=== PATIENT | female | born 1980 | race Caucasian/White ===

== ENCOUNTER 2016-11-27 13:58 | Emergency (ER) | payer BC ==
[2016-11-27 14:09] VITALS: BP 134/74
--- NOTE | 2016-11-27 14:28 | ERNOTE ---
Medical Problem HPI - Narrative Date of Service: 11/27/16 - General Chief Complaint: General Assessment Time Seen by Provider: 11/27/16 14:18 Source: patient, RN notes reviewed Exam Limitations: no limitations - Immun/Allergies/Home Medications Immunizations: IMMUNIZATION HX Immunizations Up to Date Yes History of Influenza Vaccine No Hx Pneumococcal Vaccination No Allergies/Adverse Reactions: Allergies No Known Allergies Allergy (Verified 11/27/16 14:09) Home Medications: HOME MEDICATIONS HYDROcodone/ACETAMINOPHEN [[place] 5-325] 1 - 2 tab PO Q6H PRN #12 tab 11/27/16 [ Last Taken Unknown] buPROPion HCL [Wellbutrin] 100 mg PO BID 11/27/16 [Last Taken Unknown] - History of Present History Narrative: 36 y/o female presents to the ED with left sided rib pain that was first noticed when she woke up today. She was recently treated for bronchitis and still has a cough, but reports it is improving. The pain is constant but gets significantly worse with coughing, deep breathing and certain movements. She has not taken anything for pain. She denies any associated symptoms. Review of Systems - Review of Systems Constitutional: Present: recent illness. Absent: fever, chills, malaise EYE: Present: no symptoms reported ENT: Absent: nose congestion, sore throat Respiratory: Present: cough. Absent: shortness of breath, wheezing Cardiology: Absent: palpitations, syncope Gastrointestinal/Abdominal: Absent: nausea, abdominal pain Genitourinary: Absent: other - possible Musculoskeletal: Absent: back pain, neck pain, joint pain Skin: Absent: rash, lesions, lumps Neurological: Absent: headache, dizziness/light-headedness, weakness Endocrine: Present: no symptoms reported Hematologic/Lymphatic: Present: no symptoms reported Psych: Absent: anxiety - Patient's Past Medical History Patient History - Medical: Depression Patient History - Cardiac/Respiratory: No pertinent hx Patient History - Cancer: No Hx of Cancer Patient History - Surgical Procedures: Cholecystectomy, Patient History - Other: None LMP (females 10-50): 1 month - Social History Living Situations: home Abuse History: No History of abuse Psych History: Hx of Depression, Current tx/ever been on anti-depressants or anti-anxiety meds Smoking Status: Current every day smoker Have you smoked in the past 12 months: Yes Alcohol Use: rarely Drug Use: none - Immunizations Immunizations Up to Date: Yes Hx Pneumococcal Vaccination: No History of Influenza Vaccine: No Physical Exam - Physical Exam General Appearance: Present: wd/wn, alert, no apparent distress Head Exam: Present: normal inspection Neck: Present: normal inspection, nontender, supple, full range of motion Respiratory: Present: no respiratory distress, normal breath sounds, no accessory muscle use, lungs clear, chest tenderness - Left lower anterior ribs Cardiovascular/Chest: Present: regular rate, rhythm, no murmur, normal peripheral pulses Gastrointestinal/Abdominal: Present: nontender, nondistended, soft Back Exam: Present: normal inspection, no vertebral tenderness Extremity Exam: Present: normal inspection, normal range of motion, no edema Neurological Exam: Present: alert, oriented, normal mood/affect, no motor/ sensory deficits Skin Exam: Present: normal color, warm/dry ED Progress - Vital Signs Patient's Vital Signs:: I have reviewed the patient's vital signs. Vital Signs: Vital Signs 11/27/16 14:03 Temperature 36.4 C L Pulse Rate 116 H Respiratory 16 Rate Blood Pressure 134/74 O2 Sat by Pulse 99 Oximetry - Progress/Reassessment Chief Complaint: General Assessment Progress:: Unchanged Departure - Departure Clinical Impression: Rib pain on left side Disposition: Home self-care Condition: Good Instructions: Rib Contusion Additional Instructions: Continue ibuprofen Heat to sore area Referrals: Lety Cuadra FNP [Primary Care Provider] - Prescriptions: HYDROcodone/ACETAMINOPHEN [[place] 5-325] 1 - 2 tab PO Q6H PRN #12 tab PRN Reason: Pain
== END 2016-11-27 14:34 | disposition home or self-care (01) ==
LOC: ER 13:58
DX: R07.81 Pleurodynia (principal); F32.89 Other specified depressive episodes; F17.200 Nicotine dependence, unspecified, uncomplicated

== ENCOUNTER 2017-02-28 08:45 | Day surgery (SDC) | payer BC ==
[~2017-02-28 08:45] MED LIST: ceFAZolin SODIUM 2 GM in DEXTROSE 5 % IN WATER 50 ML IV PRN
--- NOTE | 2017-02-28 09:24 | ERNOTE ---
Integumentary HPI - General Presenting Symptoms: abscess - it is more the appearance of an inflamed sebaceous cyst however Time Seen by Provider: 02/28/17 08:52 Source: patient Exam Limitations: no limitations - Immun/Allergies/Home Medications Immunizations: IMMUNIZATION HX Immunizations Up to Date Yes History of Influenza Vaccine No Hx Pneumococcal Vaccination No Allergies/Adverse Reactions: Allergies Allergy/AdvReac Type Severity Reaction Status Date / Time No Known Allergies Allergy Verified 02/28/17 09:00 Home Medications: HOME MEDICATIONS HYDROcodone/ACETAMINOPHEN [[place] 5-325] 1 - 2 tab PO Q6H PRN #12 tab 11/27/16 [ Last Taken 02/27/17] buPROPion HCL [Wellbutrin] 100 mg PO BID 11/27/16 [Last Taken Unknown] - History of Present Illness Narrative: Patient has a known sebaceous cyst on the back of her neck. She states that the cyst is tender or several months but in the last few days it is gotten considerably more tender and enlarged and feels warm to the touch to her. She rates the pain as at least moderate in severity. Location: Reports: neck Quality: Reports: painful Severity: moderate Exposure: Reports: no cause identified Modifying Factors - (Improves): Reports: nothing Modifying Factors - (Worsens): Reports: nothing Associated Symptoms: Reports: denies symptoms Review of Systems - Review of Systems Constitutional: Present: See HPI EYE: Present: no symptoms reported ENT: Present: no symptoms reported Respiratory: Present: no symptoms reported Cardiology: Present: no symptoms reported Gastrointestinal/Abdominal: Present: no symptoms reported Genitourinary: Present: no symptoms reported Musculoskeletal: Present: no symptoms reported Skin: Present: See HPI Neurological: Present: no symptoms reported Endocrine: Present: no symptoms reported Hematologic/Lymphatic: Present: no symptoms reported Psych: Present: no symptoms reported - Patient's Past Medical History Patient History - Medical: Depression, Other - previous drainage of the same sebaceous cyst Patient History - Cardiac/Respiratory: No pertinent hx Patient History - Cancer: No Hx of Cancer Patient History - Surgical Procedures: Cholecystectomy, Patient History - Other: None LMP (Calendar): 02/14/17 - Family History Father Family History - Cardiac/Respiratory: Myocardial Infarction Family History - Cancer: Lung - Social History Living Situations: significant other Abuse History: No History of abuse Psych History: Hx of Depression, Current tx/ever been on anti-depressants or anti-anxiety meds Smoking Status: Current every day smoker Have you smoked in the past 12 months: Yes Do you dip or chew tobacco: No - Immunizations Immunizations Up to Date: Yes Hx Pneumococcal Vaccination: No History of Influenza Vaccine: No Physical Exam - Physical Exam General Appearance: Present: wd/wn, alert, moderate distress Head Exam: Present: normal inspection, no evidence of injury Eye Exam: Normal inspection: bilateral, PERRL: bilateral Ears, Nose, Throat: Present: normal ENT inspection, H, normal pharynx Neck: Present: tender posterior midline - at the area of the inflamed sebaceous cyst Respiratory: Present: no respiratory distress, normal breath sounds, no accessory muscle use, chest nontender, lungs clear Cardiovascular/Chest: Present: regular rate, rhythm, no murmur, normal peripheral pulses Gastrointestinal/Abdominal: Present: normal bowel sounds, nontender, nondistended, soft, no organomegaly Rectal Exam: Present: deferred Back Exam: Present: normal inspection, normal range of motion Extremity Exam: Present: normal inspection, non-tender, no edema, normal range of motion Neurological Exam: Present: alert, oriented, normal mood/affect Skin Exam: Present: normal color, warm/dry Lymphatic Exam: Present: no adenopathy ED Progress - Vital Signs Patient's Vital Signs:: I have reviewed the patient's vital signs. Vital Signs: Vital Signs 02/28/17 08:51 Temperature 36.7 C Pulse Rate 98 Respiratory 18 Rate Blood Pressure 159/90 O2 Sat by Pulse 96 Oximetry - Progress/Reassessment Chief Complaint: Abscess Plan - Plan Plan: Dr. Judge has been consulted and he will come in and determine whether immediate surgery of this inflamed cyst needs to be undertaken today or whether he can safely do it on Thursday. Dr. Judge will take the patient to the operating room this morning. Departure Clinical Impression: Abscess - Departure Disposition: [facility] Condition: Good
[2017-02-28] MEDS ORDERED: ceFAZolin SODIUM 1 GM VIAL IV PRN (10:52)
[2017-02-28] MEDS ORDERED: RINGER'S SOLUTION,LACTATED 1,000 ML IV PRN ×2 (10:52→16:14)
[2017-02-28] MEDS ORDERED: RINGER'S SOLUTION,LACTATED 1,000 ML IV ONE ×2 (11:00)
--- NOTE | 2017-02-28 11:11 | HP ---
Chief Complaint - Chief Complaint Date of Service: 02/28/17 Time of Service: 10:57 Chief Complaint: Painful enlarging cyst on back of neck History of Present Illness: She had I&D of epidermoid cyst on the posterior neck in September of 2015. It came back and gradually enlarged. This week it became very tender, has not drained. - Patient's Past Medical History Patient History - Medical: Depression, Other - previous drainage of the same sebaceous cyst Patient History - Cardiac/Respiratory: No pertinent hx Patient History - Cancer: No Hx of Cancer Patient History - Surgical Procedures: Cholecystectomy, Patient History - Other: None LMP (Calendar): 02/14/17 - Family History Family History:: no untoward family reactions to anesthesia, no familial bleeding tendencies - Family History Father Family History - Cardiac/Respiratory: Myocardial Infarction Family History - Cancer: Lung - Social History Living Situations: significant other Abuse History: No History of abuse Psych History: Hx of Depression, Current tx/ever been on anti-depressants or anti-anxiety meds Smoking Status: Current every day smoker Have you smoked in the past 12 months: Yes Do you dip or chew tobacco: No - Immunizations Immunizations Up to Date: Yes Hx Pneumococcal Vaccination: No History of Influenza Vaccine: No Review Of Systems (GEN) - Review of Systems Generalized/Overall Review: Present: Fatigue - Sleeps poorly due to work schedule (12hr nights) EENTM: Present: Other - Pain and tenderness over cyst on posterior neck. Also has cyst behind left ear from piercing Respiratory: Present: Cough - chronic smoker's cough---no worse and non- productive Cardiac: Absent: Chest Pain, Edema, Palpitations Abdominal: Present: No Symptoms Reported, Other - irregular bowel habit since cholecystectomy, more on soft side. Absent: Abdominal Pain Genitourinary: Present: No Symptoms Reported. Absent: Burning, Frequency Musculoskeletal: Present: No Symptoms Reported Neurological: Present: No Symptoms Reported Skin: Present: Other - cysts as above. Has seen Dermatology for check on other lesions Endocrine: Present: No Symptoms Reported Immunizations: IMMUNIZATION HX Immunizations Up to Date Yes History of Influenza Vaccine No Hx Pneumococcal Vaccination No Allergies/Adverse Reactions: Allergies Allergy/AdvReac Type Severity Reaction Status Date / Time No Known Allergies Allergy Verified 02/28/17 09:00 Home Medications: HOME MEDICATIONS HYDROcodone/ACETAMINOPHEN [[place] 5-325] 1 - 2 tab PO Q6H PRN #12 tab 11/27/16 [ Last Taken 02/27/17] buPROPion HCL [Wellbutrin] 100 mg PO BID 11/27/16 [Last Taken Unknown] Exam - Exam Vital Signs: Vital Signs - Last Taken Temp 36.7 C 02/28/17 08:51 Pulse 86 02/28/17 10:42 Resp 12 02/28/17 10:42 BP 136/80 02/28/17 10:42 Pulse Ox 97 02/28/17 10:42 Constitutional: Present: Alert, Oriented x3, Cooperative, Well nourished, No distress ENT Exam: Present: other - ENT normal except 3.5 cm tender slightly red epidermal inclusion cyst posterior neck. 1 cm inclusion cyst behind left ear from piercing--not inflammed Eye Exam: bilateral eye: normal inspection Neck: Present: full range of motion Back Exam: Present: normal inspection Breasts: Present: Exam deferred Respiratory: Present: lungs clear, no respiratory distress Cardiovascular/Chest: Present: normal peripheral pulses, regular rate, rhythm, no murmur Abdomen: Present: soft, nontender /Rectal: Present: Exam deferred Extremity: Present: normal range of motion, normal inspection, no calf tenderness, normal capillary refill Skin Exam: Present: normal color, warm/dry Neurologic: Present: 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 It will require MAC/local for excision which should be done in the OR due to large size. Explained excision with closure. Risk of infection and need to wait for suitable NPO status. Questions answered to her apparent satisfaction, and informed consent for excision obtained. Problem: Acute
[2017-02-28] MEDS ORDERED: BUPIVACAINE HCL/EPINEPHRINE 50 ML VIAL IJ ONE (15:02)
[2017-02-28] MEDS ORDERED: MUPIROCIN 22 APPL TUBE TP ONE (15:10)
[2017-02-28] MEDS ORDERED: oxyCODONE HCL/ACETAMINOPHEN 1 TAB TABLET PO ONE ×2 (16:03→16:43)
[2017-02-28] MEDS ORDERED: oxyCODONE HCL/ACETAMINOPHEN 1 TAB TABLET ONE (16:41)
[2017-02-28 17:20] VITALS: BP 105/69
--- NOTE | 2017-02-28 17:26 | OR ---
Operative Report - Dictated Report Narrative: OPERATIVE REPORT DATE OF OPERATION: 02/28/2017 PREOPERATIVE DIAGNOSIS: Epidermoid inclusion cyst of posterior neck POSTOPERATIVE DIAGNOSIS: Inflamed epidermoid inclusion cyst of the posterior neck OPERATION: Excision of inflamed 2.5 cm epidermoid inclusion cyst of the posterior neck SURGEON: Evangelina Judge MD ANESTHESIA: Gen. endotracheal (prone) Neftali Arias CRNA INDICATIONS FOR PROCEDURE: The patient is a 36-year-old female who presents with a gradually enlarging and now tender epidermal inclusion cyst of the posterior neck. It has been previously incised and drained a year ago but recurred. FINDINGS: Large inflamed epidermal inclusion cyst of the posterior neck completely excised to gross inspection NARRATIVE OF PROCEDURE: The patient was identified preoperatively, the surgical site was marked, and prior to the administration of anesthetic a multidisciplinary timeout was observed. The patient was initially placed supine , SCDs were applied, and 2 g of intravenous Ancef administered. General endotracheal anesthetic was administered. The patient was then transferred to the prone position with appropriate padding and monitoring. The area around the cyst was clipped and prepped with Betadine solution. The area was isolated with sterile drapes in the remainder the patient covered with a sterile disposable sheet. The area around the cyst was infiltrated with 0.25% Marcaine with epinephrine. An elliptical skin incision was made to include the central pore and previous I&D site. The sac was then dissected free from surrounding subcutaneous tissue, the specimen removed and submitted to pathology. The base of the wound was inspected for hemostasis which was complete. The wound was then irrigated with Betadine and saline. After receiving a correct sponge needle and instrument count attention was turned to closing the wound. Subcutaneous tissue was approximated with 2 interrupted sutures of 2-0 chromic. The skin was approximated with interrupted vertical mattress sutures of 3-0 nylon. 1/4 inch iodoform ariana were left in the subcutaneous tissue and brought out through the skin. The operative site was washed and dried. A dressing of mupirocin ointment and Mepilex border/Medipore tape was applied. The operative procedure was terminated at this point. The patient tolerated the anesthetic and procedure well without complication. She was returned to the supine position without incident and then transferred to the recovery room awake, extubated, and in stable condition. The patient remained stable throughout a period of postoperative observation. She had some incisional discomfort which was controlled with po Percocet. She was able to tolerate regular diet and was up without assistance. Her dressing remained dry. I shared the operative findings with her. She was discharged home with instructions not to engage in hazardous activity today but she may return to normal activity tomorrow and advance diet as tolerated. She is to keep the dressing dry. She is to continue those medications as listed in the history and physical exam. She was given a prescription for Keflex 250 mg #21 1 po 3 times a day and Percocet 5/325 mg #30 1-2 po Q4-6hrs prn pain. She has phone numbers to call if needed for uncontrolled discomfort or problems with the incision. She will be seen tomorrow in the office for initial dressing change. Reviewed and electronically signed
== END 2017-02-28 10:42 | disposition home or self-care (01) ==
LOC: ER 08:45 → AMB 10:41
PROVIDERS: ATTEND Surgery
PROC: 0JQ40ZZ Repair Right Neck Subcutaneous Tissue and Fascia, Open Approach (ICD-10-PCS; 2017-02-28)
PROC: 0JB50ZZ Excision of Left Neck Subcutaneous Tissue and Fascia, Open Approach (ICD-10-PCS; 2017-02-28)
PROC: 0JB40ZZ Excision of Right Neck Subcutaneous Tissue and Fascia, Open Approach (ICD-10-PCS; 2017-02-28)
PROC: 0JQ50ZZ Repair Left Neck Subcutaneous Tissue and Fascia, Open Approach (ICD-10-PCS; principal; 2017-02-28 12:58)
DX: L72.0 Epidermal cyst (principal); F17.200 Nicotine dependence, unspecified, uncomplicated; Z68.23 Body mass index [BMI] 23.0-23.9, adult

== ENCOUNTER 2018-11-25 15:53 | Inpatient (IN) ==
[2018-11-25] MEDS ORDERED: OXYTOCIN 20 UNITS in RINGER'S SOLUTION,LACTATED 1,000 ML IV ONE ×2 (16:03→19:06)
[2018-11-25] MEDS ORDERED: ceFAZolin SODIUM/DEXTROSE,ISO 2 GM/50 ML BAG IV ONE (16:03)
[2018-11-25] MEDS ORDERED: RINGER'S SOLUTION,LACTATED 1,000 ML IV PRN (16:03)
--- NOTE | 2018-11-25 16:16 | HP ---
Chief Complaint - Chief Complaint Date of Service: 11/25/18 Time of Service: 16:05 Chief Complaint: headache, elevated BP History of Present Illness: 38 year old @ 36w 0d Proceed with delivery due to pre-eclampsia with severe features. Magnesium for seizure prophylaxis after delivery Pre-eclampsia labs drawn today Type and screen ordered UDS ordered IUGR: normal cord Dopplers one week ago AMA Smoker Proceed with repeat delivery and salpingectomies. All risks, benefits, and alternatives of the procedure were explained to the patient and the patient consented to the procedure. Medical History (Updated 11/25/18 @ 15:39 by Terese Fisher MD) Anxiety Depression GERD (gastroesophageal reflux disease) Kidney stones Lives with domestic partner Migraine Rarely consumes alcohol Tobacco use Onset Date: ~1995 1 ppd Surgical History: Surgical History (Updated 08/25/18 @ 16:13 by Terese Fisher MD) History of section History of cholecystectomy History of excision of epidermal inclusion cyst History of esophagogastroduodenoscopy (EGD) Onset Date: ~10/21/17 [place]-mild reflux changes. Mild benign reactive gastropathy/chemical gastrit is. Family History: Family History (Updated 06/02/18 @ 13:23 by Lewis Carlson RN) Mother Alive and well Father Cancer Hypertension Heart disease COPD (chronic obstructive pulmonary disease) Social History: (Last Updated 11/18/18 @ 15:53 by Terese Fisher MD) Social History: adopted: No Marital status: Single household members: significant other, children number of children: 2 current occupational status: employed current occupation: [employer] Highest education level completed: some college, no degree Service: No Tobacco: Smoking Status: Current every day smoker Alcohol: alcohol intake: former details: stopped with Substance Use: substance use type: does not use Dietary Habits: caffeine: Yes caffeine comment: 10 cups daily Type: carbonated beverages, coffee Pets: pets and animals: cat(s) Immunizations: IMMUNIZATION HX Immunizations Up to Date Yes History of Influenza Vaccine No Hx Pneumococcal Vaccination No Allergies/Adverse Reactions: Allergies Allergy/AdvReac Type Severity Reaction Status Date / Time No Known Allergies Allergy Verified 11/25/18 15:18 Home Medications: HOME MEDICATIONS Acetaminophen 2 tab PO Q6H PRN 10/06/17 [Last Taken 11/01/18 16:30] vit 112-iron 3.33 mg-folate 0.33 [id number] chew tablet 3 tab PO DAILY 06/02/18 [Last Taken 10/30/18] ferrous sulfate 325 mg (65 mg iron) tablet 325 mg PO DAILY 09/23/18 [Last Taken 10/31/18] miscellaneous medical supply misc See Dose Instructions .ROUTE .MEDSUPPLY #1 ea 10/25/18 [Last Taken Unknown] cyclobenzaprine 10 mg tablet 10 mg PO Q8H 30 Days #90 tab 11/22/18 [Last Taken Unknown]
--- NOTE | 2018-11-25 16:33 | HP ---
Chief Complaint - Chief Complaint Date of Service: 11/25/18 Time of Service: 16:29 Chief Complaint: Headache, elevated BP History of Present Illness: The patient is a 38 year old at 36w 0d who presented to the office for a routine obstetrical visit. She reported a headache. She denies vb, lof or ctx. Fetus is active. Medical History (Updated 11/25/18 @ 16:15 by Terese Fisher MD) Anxiety Depression GERD (gastroesophageal reflux disease) Kidney stones Lives with domestic partner Migraine Rarely consumes alcohol Tobacco use Onset Date: ~1995 03 ppd Surgical History: Surgical History (Updated 11/25/18 @ 16:15 by Terese Fisher MD) History of section History of cholecystectomy History of excision of epidermal inclusion cyst History of esophagogastroduodenoscopy (EGD) Onset Date: ~10/21/17 [place]-mild reflux changes. Mild benign reactive gastropathy/chemical gastritis. Family History: Family History (Updated 06/02/18 @ 13:23 by Lewis Carlson RN) Mother Alive and well Father Cancer Hypertension Heart disease COPD (chronic obstructive pulmonary disease) Social History: (Last Reviewed 11/25/18 @ 16:27 by Deya Scherer RN) Social History: adopted: No Marital status: Single household members: significant other, children number of children: 2 current occupational status: employed current occupation: [employer] Highest education level completed: some college, no degree Service: No Tobacco: Smoking Status: Current every day smoker Alcohol: alcohol intake: former details: stopped with Substance Use: substance use type: does not use Dietary Habits: caffeine: Yes caffeine comment: 10 cups daily Type: carbonated beverages, coffee Pets: pets and animals: cat(s) Review Of Systems (GEN) - Review of Systems Generalized/Overall Review: Present: No Symptoms Reported Misc: All systems neg except as marked Immunizations: IMMUNIZATION HX Immunizations Up to Date Yes History of Influenza Vaccine No Hx Pneumococcal Vaccination No Allergies/Adverse Reactions: Allergies Allergy/AdvReac Type Severity Reaction Status Date / Time No Known Allergies Allergy Verified 11/25/18 16:27 Home Medications: HOME MEDICATIONS Acetaminophen 2 tab PO Q6H PRN 10/06/17 [Last Taken 11/01/18 16:30] vit 112-iron 3.33 mg-folate 0.33 [id number] chew tablet 3 tab PO DAILY 06/02/18 [Last Taken 10/30/18] ferrous sulfate 325 mg (65 mg iron) tablet 325 mg PO DAILY 09/23/18 [Last Taken 10/31/18] miscellaneous medical supply misc See Dose Instructions .ROUTE .MEDSUPPLY #1 ea 10/25/18 [Last Taken Unknown] cyclobenzaprine 10 mg tablet 10 mg PO Q8H 30 Days #90 tab 11/22/18 [Last Taken Unknown] Exam - Exam Vital Signs: 36.3 Celcius 161/87 99 98% 16 Constitutional: Present: Alert, Oriented x3, Cooperative, No distress Respiratory: Present: lungs clear, normal breath sounds Cardiovascular/Chest: Present: regular rate, rhythm, no murmur Abdomen: Present: soft, nontender, nondistended Extremity: Present: non-tender, no calf tenderness Skin Exam: Present: normal color, warm/dry, no cyanosis Appearance: Present: appropriate appearance Eye contact: Present: cooperative Thoughts: Present: normal thought pattern Assessment/Plan - Narrative Narrative: 38 year old @ 36w 0d Proceed with delivery due to pre-eclampsia with severe features. Magnesium for seizure prophylaxis after delivery Pre-eclampsia labs drawn today Type and screen ordered UDS ordered IUGR: normal cord Dopplers one week ago AMA Smoker Proceed with repeat delivery. All risks, benefits, and alternatives of the procedure were explained to the patient and the patient consented to the procedure.
--- NOTE | 2018-11-25 16:41 | ANES ---
Anesthesia Pre Procedure Eval Vitals/Labs: Last Vital Signs Temp 36.3 C 11/25/18 16:33 Pulse 108 H 11/25/18 16:33 Resp 16 11/25/18 16:33 BP 161/87 H 11/25/18 16:33 Pulse Ox 99 11/25/18 16:33 HOME MEDICATIONS Acetaminophen 2 tab PO Q6H PRN 10/06/17 [Last Taken 11/01/18 16:30] vit 112-iron 3.33 mg-folate 0.33 [id number] chew tablet 3 tab PO DAILY 06/02/18 [Last Taken 10/30/18] ferrous sulfate 325 mg (65 mg iron) tablet 325 mg PO DAILY 09/23/18 [Last Taken 10/31/18] miscellaneous medical supply misc See Dose Instructions .ROUTE .MEDSUPPLY #1 ea 10/25/18 [Last Taken Unknown] cyclobenzaprine 10 mg tablet 10 mg PO Q8H 30 Days #90 tab 11/22/18 [Last Taken Unknown] Allergies/Adverse Reactions: Allergies Allergy/AdvReac Type Severity Reaction Status Date / Time No Known Allergies Allergy Verified 11/25/18 16:27 - Planned Procedure Planned Procedure: Repeat Section Medication List Reviewed:: Yes Allergies Verified: Yes Medical History (Updated 11/25/18 @ 16:15 by Terese Fisher MD) Anxiety Depression GERD (gastroesophageal reflux disease) Kidney stones Lives with domestic partner Migraine Rarely consumes alcohol Tobacco use Onset Date: ~1995 03 ppd Surgical History (Updated 11/25/18 @ 16:15 by Terese Fisher MD) History of section History of cholecystectomy History of excision of epidermal inclusion cyst History of esophagogastroduodenoscopy (EGD) Onset Date: ~10/21/17 Bagan-mild reflux changes. Mild benign reactive gastropathy/chemical gastritis. Family History (Updated 06/02/18 @ 13:23 by Lewis Carlson RN) Mother Alive and well Father Cancer Hypertension Heart disease COPD (chronic obstructive pulmonary disease) - Family Anesthesia History Family History:: no untoward family reactions to anesthesia, no familial bleeding tendencies, no family history of clotting disorders, no family history of premature - Airway/Neck/Teeth Within Normal Limits:: Yes Teeth Condition: intact Denture Type: Full upper, Full lower Mallampatti Score: 2 Thyromental (T-M) distance: > 6 cm Mandibulo Hyoid distance: > 3 cm - Respiratory Respiratory Physical: lungs clear Smoking Status: Current every day smoker Discussed smoking cessation including day of surgery: Yes Sleep Apnea currently treated: No Sleep Apnea by current assessment: No Discussed Risks/Treatment of WENDY: No - Cardiovascular Tolerate Activity: Good Heart Sounds: S1 & S2, Regular - Anesthesia Assessment and Plan ASA Class: PS, II Anesthesia Type Plan: Block - Bilateral ultrasound guided TAP blocks for postop analgesia, Spinal
[2018-11-25] MEDS ORDERED: CALCIUM GLUCONATE 4.65 MEQ/10 ML VIAL IV PRN (16:49)
[2018-11-25] MEDS ORDERED: MAGNESIUM SULFATE IN WATER 50 ML IV ONE (16:49)
[2018-11-25] MEDS ORDERED: DIAZEPAM 5 MG/ML SYRG IV PRN (16:49)
[2018-11-25 17:18] LABS: Random Urine Total Protein 177.7 mg/dL (0-12)
[2018-11-25 17:25] LABS: Cocaine Ur Negative (NEGATIVE); Urine Barbiturate Negative (NEGATIVE); Urine Benzodiazepines Negative (NEGATIVE); Urine Opiates Negative (NEGATIVE); Urine PCP Negative (NEGATIVE); Urine THC Negative (NEGATIVE)
--- NOTE | 2018-11-25 18:24 | ANES ---
Post Anesthesia Discharge - Transfer of Care Transfer of Care handoff given to nurse: Yes - Discharge from PACU Discharge from PACU when meets criteria: Yes - Discharge to ASU Discharge to ASU-no complications/pt stable: Yes
--- NOTE | 2018-11-25 18:38 | ANES ---
Post Anesthesia Assessment - Vital Signs Vitals: Last Vital Signs Temp 36.3 C 11/25/18 16:33 Pulse 108 H 11/25/18 16:33 Resp 16 11/25/18 16:33 BP 161/87 H 11/25/18 16:33 Pulse Ox 99 11/25/18 16:33 Airway Patency: Normal - Mental Status Level Of Consciousness: Awake - Pain Level Pain Score: 3 - N/V Assessment Nausea/Vomiting Presence: None Dehydration:: No
--- NOTE | 2018-11-25 18:38 | ANES ---
Anesthesia Procedure Note Procedure Note: ANESTHESIA PROCEDURE NOTE Date of Procedure: 11/25/2018. Time of procedure: 1824. Performed by: Crispin Courtney CRNA Medical Accounting Clerk: None. Preprocedure diagnosis: Repeat . Post procedure diagnosis: Same. Procedure: Bilateral ultrasound-guided transversus abdominis plane block for postop analgesia. Indications: The patient is a 38-year-old female post section. Findings: See below. Details of the procedure: ChloraPrep was used on the patient's abdomen and the procedure was performed under sterile technique. The right abdominal fascial layer between the internal oblique muscle and the transversus abdominis muscles was identified under ultrasound guidance. A 21-gauge 4 inch block needle was inserted under ultrasound guidance to the target fascial plane. 15 mL's of 0.5% bupivacaine plus epinephrine 1:200,000 was injected after negative aspiration for blood. The needle was removed intact and the procedure was then repeated at the left side. No complications were noted. The images were retained in the hospital medical database. EBL: Minimal. Fluids: N/A. Specimen: N/A. Post procedure condition: The patient tolerated the procedure well. No complications were noted. Thank you for this consultation. Crispin Courtney CRNA
[2018-11-25] MEDS: RINGER'S SOLUTION,LACTATED 1,000 ML IV PRN (18:40)
[2018-11-25] MEDS: MAGNESIUM SULFATE IN WATER 1,000 ML IV SCH (19:00)
[2018-11-25] MEDS ORDERED: oxyCODONE HCL/ACETAMINOPHEN 1 TAB TABLET PO PRN (19:06)
[2018-11-25] MEDS ORDERED: SENNOSIDES 8.6 MG TABLET PO PRN (19:06)
[2018-11-25] MEDS ORDERED: diphenhydrAMINE HCL 25 MG CAPSULE PO PRN (19:06)
[2018-11-25] MEDS ORDERED: BISACODYL 10 MG SUPP.RECT RC PRN (19:06)
[2018-11-25] MEDS ORDERED: ONDANSETRON HCL/PF 2 MG/ML VIAL IV PRN (19:06)
[2018-11-25] MEDS ORDERED: SIMETHICONE 80 MG TAB.CHEW PO PRN (19:06)
--- NOTE | 2018-11-25 19:06 | OR ---
Operative Report - Dictated Report Narrative: Date of delivery: 11/25/2018 Time of delivery: 172 Gender: male weight: 2202 grams APGARS: 9/9 Preoperative diagnosis: IUP @ 36w 0d, pre-eclampsia with severe features, AMA, smoker, IUGR Postoperative diagnosis: same Procedure: Repeat delivery Surgeon: Dr. Fisher Anesthesia: spinal Description of the procedure: The patient was taken to the operating room where spinal anesthesia was induced. She was then prepped and draped in the supine position in the standard surgical fashion. A Pfannestiel skin incision was made. The incision was carried through the subcutaneous tissue. The fascia was incised in the midline. After incising the fascia the omentum was noted consistent with an incisional hernia. The fascia was grasped with Ever clamps and dissected from the underlying rectus muscle. The rectus muscles were in the midline. The peritoneum was entered bluntly. The bladder was noted to be adherent to the lower uterine segment. A bladder flap was created. A large Zain retractor was placed. The uterus was incised in the lower uterine segment. The uterine incision was extended bluntly. The membranes were ruptured and clear amniotic fluid was noted. The head was delivered followed by the rest of the . The cord was clamped and cut and the infant was handed off to the attending pediatric staff. Cord blood was collected. The placenta was removed by placing a hand in the uterus as it was shearing and not able to be removed by expression. Trailing membranes were noted and these were removed. The uterus was cleared of all clots and debris. The uterine incision was closed with a layer of 0-vicryl. A second layer of 0-vicryl was used to obtain excellent hemostasis. Additional figure of eight sutures were placed in the midline in the superior aspect of the incision for additional hemostasis. Hemostasis was obtained with electrocautery. All surfaces were inspected and appeared hemostatic. The fascia was closed with 1-0 vicryl. The subcutaneous tissue was irrigated and made hemostatic. The skin was closed with 3-0 monocryl on a Jairo needle. [place] centeno was placed over the incision. A pressure dressing was applied to the incision. All sponge, lap, and needle counts were correct. The patient tolerated the procedure well. She was transferred to the recovery room in stable condition. EBL: 900 mL Complications: none Specimen: placenta
[2018-11-25] MEDS ORDERED: LABETALOL HCL 5 MG/ML VIAL IV ONE (19:30)
[2018-11-25] MEDS: oxyCODONE HCL/ACETAMINOPHEN 1 TAB TABLET PO PRN ×2 (19:40→23:23)
[2018-11-25] MEDS ORDERED: NICOTINE 7 MG PATC TD ONE (22:12)
[2018-11-25] MEDS: NICOTINE 14 MG PATC TD SCH (22:18)
[2018-11-25] MEDS: DOCUSATE SODIUM 100 MG CAPSULE PO SCH (23:23)
[2018-11-26] MEDS: oxyCODONE HCL/ACETAMINOPHEN 1 TAB TABLET PO PRN ×7 (02:47→23:57)
[2018-11-26] MEDS: RINGER'S SOLUTION,LACTATED 1,000 ML IV PRN ×2 (04:32→13:30)
[2018-11-26] MEDS: DOCUSATE SODIUM 100 MG CAPSULE PO SCH ×2 (10:23→20:33)
[2018-11-26] MEDS: MAGNESIUM SULFATE IN WATER 1,000 ML IV SCH (13:27)
[2018-11-26 14:32] LABS: Mean Cell Volume 96.6 fl (78-100); Mean Corpuscular Hemoglobin 33.3 pg (27-31); Mean Corpuscular Hgb Conc 34.5 g/dl (32-36); Mean Platelet Volume 13.3 fl (8-12.5); Platelet Count 196 K/mm3 (150-450); Red Blood Count 2.37 M/mm3 (4.2-5.4); Red Cell Distribution Width 13.5 % (11.5-14.0)
[2018-11-26 14:40] LABS: Albumin * 1.4 gm/dl (3.4-5.0); BUN/Creatinine Ratio 5.7 (9.0-21.6); Bilirubin, Total 0.1 mg/dL (0.0-1.1); Ca. Corrected For Albumin 8.3 mg/dL (8.4-10.2); Calcium * 6.5 mg/dL (7.9-10.9); Total Protein 4.5 gm/dL (6.2-8.2)
[2018-11-26 14:44] LABS: Hematocrit 22.9 % (37.0-47.0); Hemoglobin 7.9 gm/dL (12.5-16.0)
[2018-11-26 14:45] LABS: Total Cells Counted 100
[2018-11-26 14:56] LABS: Band 7 % (0-2.0); Lymphocyte 18 % (20-51); Monocyte 3 % (0-9); Neutrophil 72 % (42-75); Neutrophil # 14.4 K/mm3 (1.3-6.0); Platelet Estimate Normal (NORMAL); RBC Morphology Normal (NORMAL)
--- NOTE | 2018-11-26 20:16 | PN ---
Subjective - Date and Time Seen Date: 11/26/18 Time: 20:14 Subjective Narrative: Patient without complaints Objective Objective Narrative: See vital signs - Review of Systems Generalized/Overall Review: Reports: No Symptoms Reported Misc: All systems neg except as marked - Vitals Vitals: Last Vital Signs Temp 36.3 C 11/26/18 19:55 Pulse 95 11/26/18 19:55 Resp 16 11/26/18 19:55 BP 152/70 H 11/26/18 19:55 Pulse Ox 96 11/26/18 19:55 - Abnormal Lab Findings Abnormal Lab Findings: Abnormal Lab Results 11/26/18 11/26/18 11/26/18 Range/Units 14:15 14:15 14:21 WBC 20.0 H D (4.0-10.5) K/mm3 RBC 2.37 L (4.2-5.4) M/mm3 Hgb 7.9 L* D (12.5-16.0) gm/dL Hct 22.9 L* D (37.0-47.0) % MCH 33.3 H (27-31) pg MPV 13.3 H (8-12.5) fl Band Neuts % (Manual) 7 H (0-2.0) % Lymphocytes % (Manual) 18 L (20-51) % Neutrophils # (Manual) 14.4 H (1.3-6.0) K/mm3 Lymphocytes # (Manual) 3.6 H (1.5-3.5) k/mm3 Carbon Dioxide 23.0 L (24-32.6) mmol/L BUN/Creatinine Ratio 5.7 L (9.0-21.6) Calcium 6.5 L (7.9-10.9) mg/dL Calcium Adj for Albumin 8.3 L (8.4-10.2) mg/dL Magnesium 7.3 H (1.2-2.8) mg/dL ALT 7 L (19-67) U/L Total Protein 4.5 L (6.2-8.2) gm/dL Albumin 1.4 L (3.4-5.0) gm/dl - Exam Constitutional: Present: Alert, Oriented x3, Cooperative, No distress Respiratory: Present: lungs clear, normal breath sounds Cardiovascular/Chest: Present: regular rate, rhythm, no murmur Abdomen: Present: soft, nontender, nondistended Extremity: Present: non-tender, no calf tenderness Skin Exam: Present: normal color, warm/dry, no cyanosis Appearance: Present: appropriate appearance Eye contact: Present: cooperative Thoughts: Present: normal thought pattern Cauti Physician Documentation - Urinary Catheter Management Urethral (Smith) Urethral Indwelling: No Date of Insertion: 11/26/18 Time of Insertion: 17:05 Date of Removal: 11/26/18 Time of Removal: 19:00 Assessment/Plan Plan Narrative: POD 1 s/p repeat delivery Doing well Magnesium discontinued secondary to patient having symptoms of toxicity Hemoglobin shows anemia as expected given blood loss as well as preoperative hemoglobin. Repeat CBC in the AM Start procardia for severe range BPs Anticipate discharge POD 3
[2018-11-26] MEDS: NICOTINE 14 MG PATC TD SCH (21:16)
[2018-11-27] MEDS: oxyCODONE HCL/ACETAMINOPHEN 1 TAB TABLET PO PRN ×5 (03:08→21:08)
[2018-11-27 07:08] LABS: Hematocrit 24.1 % (37.0-47.0); Hemoglobin 8.3 gm/dL (12.5-16.0); Mean Cell Volume 97.6 fl (78-100); Mean Corpuscular Hemoglobin 33.6 pg (27-31); Mean Corpuscular Hgb Conc 34.4 g/dl (32-36); Mean Platelet Volume 12.2 fl (8-12.5); Neutrophil # 12.3 K/mm3 (1.3-6.0); Neutrophil % 69.9 % (42-75.0); Platelet Count 211 K/mm3 (150-450); Red Blood Count 2.47 M/mm3 (4.2-5.4); Red Cell Distribution Width 13.6 % (11.5-14.0); White Blood Count 17.7 K/mm3 (4.0-10.5)
[2018-11-27] MEDS: DOCUSATE SODIUM 100 MG CAPSULE PO SCH ×3 (07:37→21:08)
--- NOTE | 2018-11-27 09:40 | PN ---
Subjective - Date and Time Seen Date: 11/27/18 Time: 09:39 Subjective Narrative: Patient without complaints Objective Objective Narrative: See vital signs - Review of Systems Generalized/Overall Review: Reports: No Symptoms Reported Misc: All systems neg except as marked - Vitals Vitals: Last Vital Signs Temp 36.7 C 11/27/18 07:15 Pulse 101 H 11/27/18 07:15 Resp 20 11/27/18 07:15 BP 152/72 H 11/27/18 07:15 Pulse Ox 97 11/27/18 07:15 - Abnormal Lab Findings Abnormal Lab Findings: Abnormal Lab Results 11/26/18 11/26/18 11/26/18 Range/Units 14:15 14:15 14:21 WBC 20.0 H D (4.0-10.5) K/mm3 RBC 2.37 L (4.2-5.4) M/mm3 Hgb 7.9 L* D (12.5-16.0) gm/dL Hct 22.9 L* D (37.0-47.0) % MCH 33.3 H (27-31) pg MPV 13.3 H (8-12.5) fl Immature Gran % (Auto) (0.001-0.429) % Immature Gran # (Auto) (0.000-0.0310) K/mm3 Band Neuts % (Manual) 7 H (0-2.0) % Lymphocytes % (20-51) % Lymphocytes % (Manual) 18 L (20-51) % Neutrophils # (1.3-6.0) K/mm3 Neutrophils # (Manual) 14.4 H (1.3-6.0) K/mm3 Lymphocytes # (Manual) 3.6 H (1.5-3.5) k/mm3 Monocytes # (0.0-1.0) k/mm3 Carbon Dioxide 23.0 L (24-32.6) mmol/L BUN/Creatinine Ratio 5.7 L (9.0-21.6) Calcium 6.5 L (7.9-10.9) mg/dL Calcium Adj for Albumin 8.3 L (8.4-10.2) mg/dL Magnesium 7.3 H (1.2-2.8) mg/dL ALT 7 L (19-67) U/L Total Protein 4.5 L (6.2-8.2) gm/dL Albumin 1.4 L (3.4-5.0) gm/dl 11/27/18 Range/Units 06:00 WBC 17.7 H (4.0-10.5) K/mm3 RBC 2.47 L (4.2-5.4) M/mm3 Hgb 8.3 L (12.5-16.0) gm/dL Hct 24.1 L (37.0-47.0) % MCH 33.6 H (27-31) pg MPV (8-12.5) fl Immature Gran % (Auto) 1.40 H (0.001-0.429) % Immature Gran # (Auto) 0.25 H (0.000-0.0310) K/mm3 Band Neuts % (Manual) (0-2.0) % Lymphocytes % 19.2 L (20-51) % Lymphocytes % (Manual) (20-51) % Neutrophils # 12.3 H (1.3-6.0) K/mm3 Neutrophils # (Manual) (1.3-6.0) K/mm3 Lymphocytes # (Manual) (1.5-3.5) k/mm3 Monocytes # 1.5 H (0.0-1.0) k/mm3 Carbon Dioxide (24-32.6) mmol/L BUN/Creatinine Ratio (9.0-21.6) Calcium (7.9-10.9) mg/dL Calcium Adj for Albumin (8.4-10.2) mg/dL Magnesium (1.2-2.8) mg/dL ALT (19-67) U/L Total Protein (6.2-8.2) gm/dL Albumin (3.4-5.0) gm/dl - Exam Constitutional: Present: Alert, Oriented x3, Cooperative, No distress Abdomen: Present: soft, nontender, nondistended - dressing c/d/i Extremity: Present: non-tender, no calf tenderness Skin Exam: Present: normal color, warm/dry, no cyanosis Appearance: Present: appropriate appearance Eye contact: Present: cooperative Thoughts: Present: normal thought pattern Cauti Physician Documentation - Urinary Catheter Management Urethral (Smith) Urethral Indwelling: No Date of Insertion: 11/26/18 Time of Insertion: 17:05 Date of Removal: 11/26/18 Time of Removal: 19:00 Assessment/Plan Plan Narrative: POD 2 s/p repeat delivery Doing well Discharge POD 3
[2018-11-27] MEDS: NIFEdipine 30 MG TAB.SR.24H PO SCH ×3 (14:03→20:22)
[2018-11-27] MEDS: NICOTINE 14 MG PATC TD SCH (21:08)
[2018-11-28] MEDS: oxyCODONE HCL/ACETAMINOPHEN 1 TAB TABLET PO PRN ×4 (00:27→12:09)
[2018-11-28] MEDS: DOCUSATE SODIUM 100 MG CAPSULE PO SCH (09:08)
[2018-11-28] MEDS ORDERED: RINGER'S SOLUTION,LACTATED 1,000 ML IV ONE (09:42)
[2018-11-28 10:04] LABS: Hemoglobin 8.2 gm/dL (12.5-16.0); Mean Cell Volume 96.7 fl (78-100); Mean Corpuscular Hemoglobin 33.5 pg (27-31); Mean Corpuscular Hgb Conc 34.6 g/dl (32-36); Mean Platelet Volume 12.2 fl (8-12.5); Neutrophil % 79.9 % (42-75.0); Platelet Count 221 K/mm3 (150-450); Red Blood Count 2.45 M/mm3 (4.2-5.4); Red Cell Distribution Width 13.4 % (11.5-14.0); White Blood Count 16.2 K/mm3 (4.0-10.5)
[2018-11-28 10:10] LABS: Hematocrit 23.7 % (37.0-47.0)
[2018-11-28] MEDS ORDERED: LABETALOL HCL 100 MG TABLET PO SCH (10:45)
--- NOTE | 2018-11-28 11:23 | PN ---
Subjective - Date and Time Seen Date: 11/28/18 Time: 11:19 Subjective Narrative: Patient without complaints Objective Objective Narrative: See vital signs - Review of Systems Generalized/Overall Review: Reports: No Symptoms Reported Misc: All systems neg except as marked - Vitals Vitals: Last Vital Signs Temp 37.6 C 11/28/18 08:45 Pulse 126 H 11/28/18 08:45 Resp 20 11/28/18 08:45 BP 132/72 11/28/18 08:45 Pulse Ox 97 11/28/18 08:45 - Abnormal Lab Findings Abnormal Lab Findings: Abnormal Lab Results 11/28/18 Range/Units 09:55 WBC 16.2 H (4.0-10.5) K/mm3 RBC 2.45 L (4.2-5.4) M/mm3 Hgb 8.2 L (12.5-16.0) gm/dL Hct 23.7 L* (37.0-47.0) % MCH 33.5 H (27-31) pg Immature Gran % (Auto) 1.80 H (0.001-0.429) % Immature Gran # (Auto) 0.29 H (0.000-0.0310) K/mm3 Neutrophils % 79.9 H (42-75.0) % Lymphocytes % 9.1 L (20-51) % Neutrophils # 13.0 H (1.3-6.0) K/mm3 Lymphocytes # 1.48 L (1.5-3.5) k/mm3 Monocytes # 1.3 H (0.0-1.0) k/mm3 - Exam Constitutional: Present: Alert, Oriented x3, Cooperative, No distress Respiratory: Present: wheezing - LLL Cardiovascular/Chest: Present: no murmur, tachycardia Abdomen: Present: soft, nontender, nondistended - incision c/d/i Extremity: Present: non-tender, no calf tenderness Skin Exam: Present: normal color, warm/dry, no cyanosis Appearance: Present: appropriate appearance Eye contact: Present: cooperative Thoughts: Present: normal thought pattern Cauti Physician Documentation - Urinary Catheter Management Urethral (Smith) Urethral Indwelling: No Date of Insertion: 11/26/18 Time of Insertion: 17:05 Date of Removal: 11/26/18 Time of Removal: 19:00 Assessment/Plan Plan Narrative: POD 3 s/p repeat delivery The patient went outside to smoke even though a nicotine patch was ordered for her. The patient was delivered for severe pre-eclapmsia and she is on seizure precautions. The patient is counseled that she most definitely not go outside to smoke given reason for delivery and the risk of seizure, , stroke, etc. Since the patient returned from smoking she has been tachycardic. A CBC was checked and it is not from anemia. Her hemoglobin has been stable since surgery. EKG ordered. CTA lungs ordered since lungs are not clear to rule out either pneumonia or PE. Switch from procardia to labetalol 200mg PO BID. Telemetry ordered. Observe overnight.
[2018-11-28 12:08] VITALS: BP 154/78
--- NOTE | 2018-11-28 14:27 | CONS ---
[facility] - General Date of Service: 11/28/18 Narrative: I was asked to evaluate the patient for persistent postop tachycardia. She is postop day 3 from a , complicated by severe preeclampsia. She went out to smoke today and ever since, her heart rate is been in the 120s and 130s. She was given a 100 mg dose of labetalol an hour ago, and her heart rate remains elevated at 116 on my exam. She denies being symptomatic, and reports her baseline heart rate is high. CT chest was done, which suggested possible pulmonary hypertension Source: patient - History of Present Illness Associated Symptoms: denies symptoms Allergies/Adverse Reactions: Allergies No Known Allergies Allergy (Verified 11/25/18 16:27) Home Medications: Home Medications Medication Instructions Recorded Last Taken vit 112-iron 3.33 3 tab PO DAILY 06/02/18 10/30/18 mg-folate 0.33 [id number]-dxv chew tablet oxyCODONE HCL/ACETAMINOPHEN 1 tab PO Q3H PRN #20 tab 11/27/18 Unknown [Percocet 5 MG/325 MG] Procedures Excision of Duodenum, Via Natural or Artificial Opening Endoscopic, Diagnostic (10/21/17) Excision of Left Neck Subcutaneous Tissue and Fascia, Open Approach (02/28/17) Excision of Right Neck Subcutaneous Tissue and Fascia, Open Approach (02/28/17) Excision of Stomach, Via Natural or Artificial Opening Endoscopic, Diagnostic (10/21/17) Extraction of Products of Conception, Low, Open Approach (11/25/18) Repair Left Neck Subcutaneous Tissue and Fascia, Open Approach (02/28/17) Repair Right Neck Subcutaneous Tissue and Fascia, Open Approach (02/28/17) Medications - Medications Current Medications: Current Medications Docusate Sodium (Colace) 100 mg PO BID FUNMILAYO Stop: 12/25/18 21:01 Last Admin: 11/28/18 09:08 Dose: 100 mg Documented by: Lactated Ringer's (Lactated Ringers) 1,000 mls @ 999 mls/hr IV .Q1H1M PRN PRN Reason: HYDRATION Stop: 12/25/18 16:04 Last Infusion: 11/25/18 17:29 Dose: Infused Documented by: Lactated Ringer's (Lactated Ringers) 1,000 mls @ 125 mls/hr IV .Q8H PRN PRN Reason: HYDRATION Stop: 12/25/18 16:04 Last Infusion: 11/26/18 17:00 Dose: Infused Documented by: Labetalol HCl (Trandate) 100 mg PO BID [facility] Stop: 12/28/18 10:46 Last Admin: 11/28/18 12:07 Dose: 100 mg Documented by: Nicotine (Nicoderm) 14 mg TD Q24H [facility] Stop: 12/25/18 21:31 Last Admin: 11/27/18 21:08 Dose: Not Given Documented by: Oxycodone/Acetaminophen (Percocet 5 Mg/325 Mg) 1 tab PO Q3H PRN PRN Reason: Moderate Pain (pain scale 4-6) Stop: 12/25/18 19:07 Last Admin: 11/28/18 12:09 Dose: 1 tab Documented by: Review of Systems - Review of Systems Generalized/Overall Review: Absent: Fever Respiratory: Absent: Cough, Shortness of Breath Cardiac: Absent: Chest Pain, Edema Abdominal: Present: Abdominal Pain - post op. Absent: Nausea Genitourinary: Present: No Symptoms Reported Musculoskeletal: Present: No Symptoms Reported Physical Examination - Exam Vital Signs: Vital Signs - Last Taken Temp 36.9 C 11/28/18 12:05 Pulse 126 H 11/28/18 12:07 Resp 20 11/28/18 12:05 BP 154/78 H 11/28/18 12:07 Pulse Ox 97 11/28/18 12:05 O2 Oxygen Delivery Method Room Air - Results and Findings: Lab/Microbiology results last 24 hrs: Abnormal/Pending Laboratory Last 24 HRS 11/28/18 09:55 WBC 16.2 H RBC 2.45 L Hgb 8.2 L Hct 23.7 L* MCH 33.5 H Immature Gran % (Auto) 1.80 H Immature Gran # (Auto) 0.29 H Neutrophils % 79.9 H Lymphocytes % 9.1 L Neutrophils # 13.0 H Lymphocytes # 1.48 L Monocytes # 1.3 H - Assessments/Findings (1) Tachycardia Diagnosis(s): Heart rate has remained elevated despite labetalol. She has some anemia, but this is been present since POD #1. CT showed possible fluid overload, but she does not have signs of fluid overload on physical exam. EKG shows [address] depression in leads II and aVF, and 2 mm in lead III. Concern for developing cardiac ischemia. Troponin pending, to be drawn from the labs earlier today. Problem: Acute
[2018-11-28 14:57] LABS: Albumin * 1.5 gm/dl (3.4-5.0); Anion Gap 14.7 mmol/L (6.8-13.8); BUN/Creatinine Ratio 11.1 (9.0-21.6); Bilirubin, Total 0.2 mg/dL (0.0-1.1); Ca. Corrected For Albumin 9.1 mg/dL (8.4-10.2); Calcium * 7.4 mg/dL (7.9-10.9); Carbon Dioxide 21.7 mmol/L (24-32.6); Potassium 4.4 mmol/L (3.4-4.6); Total Protein 4.5 gm/dL (6.2-8.2)
--- NOTE | 2018-11-28 15:34 | PN ---
Progess Note - Interim Date: 11/28/18 Time: 15:26 Narrative: 11/28/18 15:26 Had multiple discussions with MFM, cardiology and the ED physician at [facility] and they have agreed to accept the patient as a transfer. Pt needs to come to the ED for evaluation first. The patient has had tachycardia that is new in onset today. O2 sat is 96% on RA. Heart rate continues to be elevated. EKG results as per family medicine note. Troponin negative. BNP high. There is mild cardiomegaly, trace left pleural fluid, hepatomegaly, mediastinal lymphadenopathy The patient is refusing to be transferred at this point until the baby is transferred.
--- NOTE | 2018-11-28 15:42 | DS ---
Transfer Discharge Summary - Diagnosis(s)/Problems (1) Abnormal EKG Problem: Acute (2) Congestive heart failure Problem: Acute (3) Mild cardiomegaly Problem: Acute (4) Pleural effusion Problem: Acute (5) Hepatomegaly Problem: Acute (6) Mediastinal lymphadenopathy Problem: Acute (7) Tachycardia Problem: Acute (8) Pre-eclampsia Problem: Acute (9) History of delivery Problem: Acute - Course Description of Stay: The patient is a 38 year old who was delivered at 36w 0d due to severe pre-eclampsia via repeat delivery. The patient did well postoperatively until today when she developed tachycardia in the 120s-150s. An EKG was obtained which showed changes that could represent ischemia. Troponin was negative. A CTA of the lungs was obtained which showed the above mentioned diagnoses. The patient has mild cardiomegaly, EKG changes, and elevated BNP which is concerning for cardiomyopathy and/or CHF. For this reason she will be transferred to [facility]. Procedures Performed: see notes below Procedures: Repeat delivery - Results and Findings Results and Findings: Laboratory Results - last 24 hr 11/28/18 11/28/18 11/28/18 09:55 10:00 10:00 WBC 16.2 H RBC 2.45 L Hgb 8.2 L Hct 23.7 L* MCV 96.7 MCH 33.5 H MCHC 34.6 RDW 13.4 Plt Count 221 MPV 12.2 Immature Gran % (Auto) 1.80 H Immature Gran # (Auto) 0.29 H Neutrophils % 79.9 H Lymphocytes % 9.1 L Monocytes % 8.3 Eosinophils % 0.6 Basophils % 0.3 Nucleated RBC % 0.0 Neutrophils # 13.0 H Lymphocytes # 1.48 L Monocytes # 1.3 H Eosinophils # 0.1 Absolute Basophils 0.1 Sodium 136 Plasma Sodium 136 Potassium 4.4 Chloride 104 Carbon Dioxide 21.7 L Anion Gap 14.7 H BUN 10 D Creatinine 0.90 Est GFR (Non-Af Amer) 74 D BUN/Creatinine Ratio 11.1 Random Glucose 128 H Calcium 7.4 L Calcium Adj for Albumin 9.1 Total Bilirubin 0.2 AST 28 ALT 8 L Alkaline Phosphatase 134 Troponin I 0.067 B-Natriuretic Peptide 711 H Total Protein 4.5 L Albumin 1.5 L - Medications Medications: Active Medications Docusate Sodium (Colace) 100 mg PO BID [facility] Stop: 12/25/18 21:01 Last Admin: 11/28/18 09:08 Dose: 100 mg Documented by: Lactated Ringer's (Lactated Ringers) 1,000 mls @ 999 mls/hr IV .Q1H1M PRN PRN Reason: HYDRATION Stop: 12/25/18 16:04 Last Infusion: 11/25/18 17:29 Dose: Infused Documented by: Lactated Ringer's (Lactated Ringers) 1,000 mls @ 125 mls/hr IV .Q8H PRN PRN Reason: HYDRATION Stop: 12/25/18 16:04 Last Infusion: 11/26/18 17:00 Dose: Infused Documented by: Labetalol HCl (Trandate) 100 mg PO BID [facility] Stop: 12/28/18 10:46 Last Admin: 11/28/18 12:07 Dose: 100 mg Documented by: Nicotine (Nicoderm) 14 mg TD Q24H [facility] Stop: 12/25/18 21:31 Last Admin: 11/27/18 21:08 Dose: Not Given Documented by: Oxycodone/Acetaminophen (Percocet 5 Mg/325 Mg) 1 tab PO Q3H PRN PRN Reason: Moderate Pain (pain scale 4-6) Stop: 12/25/18 19:07 Last Admin: 11/28/18 12:09 Dose: 1 tab Documented by: Discontinued Medications Cefazolin Sodium/Dextrose (Ancef) 2 gm in 50 mls @ 100 mls/hr IV PREOP ONE; Protocol Stop: 11/25/18 16:32 Last Infusion: 11/25/18 17:15 Dose: Infused Documented by: Oxytocin 20 units/ Lactated (Ringer's) 1,002 mls @ 125 mls/hr IV .Q8H1M ONE Stop: 11/26/18 00:03 Last Infusion: 11/25/18 18:40 Dose: Infused Documented by: Magnesium Sulfate (Magnesium Sulfate 40 Gm) 1,000 mls @ 50 mls/hr IV .Q20H FUNMILAYO; Protocol Stop: 12/25/18 17:01 Last Infusion: 11/26/18 13:55 Dose: 0 mls/hr Documented by: Magnesium Sulfate (Magnesium Sulfate 4 Gm) 50 mls @ 100 mls/hr IV ONCE ONE; Protocol Stop: 11/25/18 17:18 Last Admin: 11/25/18 18:36 Dose: 100 mls/hr Documented by: Lactated Ringer's (Lactated Ringers) 1,000 mls @ 999 mls/hr IV .Q1H1M ONE Stop: 11/28/18 10:42 Last Admin: 11/28/18 10:03 Dose: 999 mls/hr Documented by: Labetalol HCl (Trandate) 20 mg IV ONCE ONE Stop: 11/25/18 19:31 Last Admin: 11/25/18 19:24 Dose: 20 mg Documented by: Nifedipine (Procardia Xl) 60 mg PO DAILY [facility] Stop: 12/26/18 17:01 Last Admin: 11/27/18 20:22 Dose: 60 mg Documented by: - Disposition Disposition: Short Term Hospital Inpatient Condition: Fair Discharge Date: 11/28/18 Discharge Time: 15:39
--- NOTE | 2018-11-28 15:58 | PN ---
Tal Note - Interim Date: 11/28/18 Time: 15:57 Narrative: 11/28/18 15:57 had another discussion with the patient and she agrees to be transferred now rather than waiting for baby.
[2018-11-28 16:35] LABS: Cocaine Ur Negative (NEGATIVE); Urine Barbiturate Negative (NEGATIVE); Urine Benzodiazepines Negative (NEGATIVE); Urine Opiates Negative (NEGATIVE); Urine PCP Negative (NEGATIVE); Urine THC Negative (NEGATIVE)
[2018-11-28] MEDS ORDERED: NIFEdipine 30 MG TAB.SR.24H PO SCH (21:00)
== END 2018-11-28 16:54 | disposition short-term general hospital (02) | DRG 786 ==
LOC: OB 15:53
PROVIDERS: ADMIT Obstetrics & Gynecology; ATTEND Obstetrics & Gynecology
DX: K43.2 Incisional hernia without obstruction or gangrene; O90.3 Peripartum cardiomyopathy; Z3A.36 36 weeks gestation of pregnancy; I50.9 Heart failure, unspecified; Z37.0 Single live birth; F17.210 Nicotine dependence, cigarettes, uncomplicated; O36.5930 Maternal care for other known or suspected poor fetal growth, third trimester, not applicable or unspecified; O75.4 Other complications of obstetric surgery and procedures; O99.334 Smoking (tobacco) complicating childbirth; O34.211 Maternal care for low transverse scar from previous cesarean delivery; R59.0 Localized enlarged lymph nodes; R00.0 Tachycardia, unspecified; O14.14 Severe pre-eclampsia complicating childbirth; R94.31 Abnormal electrocardiogram [ECG] [EKG]; N85.8 Other specified noninflammatory disorders of uterus
CPT/HCPCS: 36415; 59025; 71275; 80053; 80307; 82570; 83519; 83735; 83880; 84155; 84156; 84484; 85007; 85025; 86850; 88307; 93005; Q9967